=== PATIENT | female | born 1950 | race African-American/Black ===

== ENCOUNTER 2020-01-02 13:32 | Emergency (ER) | payer OTHER ==
[~2020-01-02] VITALS: Ht 149.9 cm; Wt 68.0 kg
[2020-01-02] MEDS ORDERED: INBRIJA42 MG (14:02)
[2020-01-02] MEDS ORDERED: PROLIA60 MG/1 ML (14:03)
[2020-01-02] MEDS ORDERED: MIRAPEX0.25 MG (14:03)
== END 2020-01-02 16:45 | disposition home or self-care (01) ==
LOC: ER 13:32
DX: F43.8 Other reactions to severe stress (principal); F06.4 Anxiety disorder due to known physiological condition; R00.2 Palpitations